=== PATIENT | female | born 1940 | race Caucasian/White ===

== ENCOUNTER 2016-05-30 13:24 | Inpatient (IN) | payer OTHER, MEDICARE ==
[~2016-05-30] VITALS: Ht 157.5 cm; Wt 76.7 kg
[2016-05-30 13:28] VITALS: BP 125/71; PULSE 94; RESP 18; TEMP 97.7; O2SAT 95
--- NOTE | 2016-05-30 13:55 | NUR ---
No ER beds available at this time. Pt placed to ER waiting room in stable condition.
--- NOTE | 2016-05-30 14:45 | NUR ---
Ulysses maradiaga in EDM - 05/30/16 at [address] Ni at bedside to assess pt.
--- NOTE | 2016-05-30 14:47 | NUR ---
Patient to ER bed 8 to gown for evaluation. Side rails up. Report given to Vicky SHAHID.
[2016-05-30] MEDS ORDERED: KETOROLAC TROMETHAMINE 30 MG VIAL IVP ONE (15:00)
--- NOTE | 2016-05-30 15:10 | NUR ---
Patient to ER C/O severe left knee pain. Patient states that couple days ago she had sudden onset of bilateral knee pain post fall "to my knees" on asphalt, left knee is worse. Had imaging done CT & MRI. AAOx4, unlabored breathing, no deformity, no signs of acute distress.
--- NOTE | 2016-05-30 15:15 | NUR ---
# 18 gauge angiocath placed to right forearm. Use of asceptic technique. Opsite placed over site. Blood return noted. Blood for lab drawn from site. Flushed with 10 cc of normal saline. No evidence of infiltration noted. Patient tolerated well.
[2016-05-30 15:34] LABS: BASOPHILS # (AUTO) 0.1 K/uL (0.0-0.2); BASOPHILS % (AUTO) 0.5 % (0.0-2.0); EOSINOPHILS # (AUTO) 0.4 K/uL (0.0-0.4); EOSINOPHILS % (AUTO) 2.8 % (0.0-4.0); HEMATOCRIT 42.1 % (36-48); HEMOGLOBIN 14.1 g/dL (12.0-16.0); LYMPHOCYTES # (AUTO) 1.9 K/uL (1.0-5.5); LYMPHOCYTES % (AUTO) 14.2 % (20.5-51.5); MEAN CORPUSCULAR HEMOGLOBIN 29 pg (27-31); MEAN CORPUSCULAR HGB CONC 34 % (32-36); MEAN CORPUSCULAR VOLUME 87 fL (79.0-98.0); MONOCYTES # (AUTO) 1.1 K/uL (0.0-1.0); MONOCYTES % (AUTO) 8.3 % (1.7-9.3); NEUTROPHILS # (AUTO) 9.5 K/uL (1.8-7.7); NEUTROPHILS % (AUTO) 74.2 % (40.0-70.0); PLATELET COUNT (AUTO) 234 K/uL (130-430); RED BLOOD CELL COUNT(AUTO) 4.83 MIL/uL (4.2-6.2); RED CELL DISTRIBUTION WIDTH 13.4 % (9.0-15.0)
--- NOTE | 2016-05-30 15:34 | NUR ---
Medication reconciliation - Patient does not remember the complete med list with MGs. Patient advised to ask family to bring pill bottles for med rec.
[2016-05-30 15:39] LABS: ANION GAP 9 (5-15); CALCIUM 9.5 mg/dL (8.4-11.0); CHLORIDE 99 mmol/L (98-107); CREATININE 1.01 mg/dL (0.55-1.30); GLUCOSE 179 mg/dL (70-99); POTASSIUM 4.3 mmol/L (3.5-5.1); SODIUM SERUM 133 mmol/L (136-145); UREA NITROGEN, BLOOD 18 mg/dL (8-21)
[2016-05-30 15:44] LABS: ALANINE AMINOTRANSFERASE 20 U/L (12-78); ASPARTATE AMINOTRANSFERASE 15 U/L (10-37); TOTAL BILIRUBIN 0.5 mg/dL (0.0-1.0); TOTAL PROTEIN, SERUM 7.8 g/dL (6.4-8.3)
[2016-05-30] MEDS ORDERED: MORPHINE 2 MG/ML INJ. SYRINGE IVP PRN (15:45)
[2016-05-30] MEDS ORDERED: cefTRIAXone 1 GM IVPB PREMIX 50 ML IV ONE (15:45)
[2016-05-30] MEDS ORDERED: ACETAMINOPHEN 325 MG TABLET PO PRN (15:45)
[2016-05-30 15:50] LABS: INR 0.9 (0.8-1.2); PROTHROMBIN TIME 10.3 SECS (9.5-12.5)
--- NOTE | 2016-05-30 15:59 | NUR ---
Trial Attorney at bedside for lactic acid & blood cultures draw, patient identified.
--- NOTE | 2016-05-30 16:02 | NUR ---
Patient will be admitted to care of DR GOMES. Admitted to [facility] IN unit. Will go to room 107A. Belongings list completed. Summary report printed. Report given to RN.
[2016-05-30] MEDS ORDERED: GLUXR500 PO (16:10)
[2016-05-30] MEDS ORDERED: GLIP5TAB13 PO (16:10)
--- NOTE | 2016-05-30 16:13 | NUR ---
Transfer to [facility]. IV present no sign or symptom of infiltration.
--- NOTE | 2016-05-30 16:19 | NUR ---
ADMISSION NOTE Received patient from ER via gurney. Patient admitted with diagnosis of FALL, KNEE PAIN. Patient is awake, alert, oriented X 4. Patient oriented to hospital room, call light, toileting, pain management and safety-teach back done. Patient informed that SALVADOR will be THE nurse and that their room number is 107A. Personal belongings checked and Belongings List documented. Call light within reach.
[2016-05-30 16:26] VITALS: BP 121/69; PULSE 103; RESP 16; TEMP 97.6
[2016-05-30] MEDS ORDERED: metFORMIN HCL 500 MG TABLET PO SCH (18:00)
[2016-05-30] MEDS ORDERED: OMEP40CA33 PO (18:13)
[2016-05-30] MEDS ORDERED: VITA1CAP PO (18:13)
[2016-05-30] MEDS ORDERED: CHOL400D6 PO (18:13)
[2016-05-30] MEDS ORDERED: SPIR50TA26 PO (18:13)
[2016-05-30] MEDS ORDERED: VITA100T3 PO (18:13)
[2016-05-30] MEDS ORDERED: GLIM4TAB PO (18:13)
[2016-05-30] MEDS ORDERED: METF-509 PO ×2 (18:13)
[2016-05-30] MEDS ORDERED: ASCO125T PO (18:13)
--- NOTE | 2016-05-30 18:20 | NUR ---
CLOSING NOTE: All needs met. No change in assessment. Will endorse to NOC shift nurse.
--- NOTE | 2016-05-30 20:02 | NUR ---
Opening Note Report received from Juan SHAHID. Patient is in stable condition. Currently resting in bed. No complaints at the present moment. IV is on the RFA, saline locked. Call light is within reach. Instructed patient to use it whenever in need of assistance.
[2016-05-30 20:03] VITALS: BP 112/63; PULSE 80; RESP 16; TEMP 96.2; O2SAT 96
--- NOTE | 2016-05-30 22:08 | NUR ---
Rounds Assisted patient to the bed benavides. Call light is within reach.
[2016-05-31] VITALS: BP 122/66; PULSE 73; RESP 16; TEMP 97.2; O2SAT 96
--- NOTE | 2016-05-31 00:28 | NUR ---
Rounds Assisted patient to the bed benavides. Call light is within reach.
[2016-05-31 02:38] LABS: BILIRUBIN,URINE NEGATIVE (NEGATIVE); CLARITY/URINE CLEAR (CLEAR); COLOR,URINE YELLOW (YELLOW); GLUCOSE,URINE NEGATIVE (NEGATIVE); KETONES,URINE NEGATIVE (NEGATIVE); LEUKOCYTE ESTERASE ,URINE TRACE (NEGATIVE); NITRITE, URINE NEGATIVE (NEGATIVE); PROTEIN URINE NEGATIVE (NEGATIVE); UROBILINOGEN,URINE 0.2 (0.2-1.0)
--- NOTE | 2016-05-31 02:40 | NUR ---
Rounds Patient is currently resting in bed. Call light is within reach.
[2016-05-31 02:49] LABS: BLOOD, URINE TRACE (NEGATIVE)
[2016-05-31 03:05] LABS: BACTERIA,URINE FEW /HPF (None Seen); RBC,URINE 0-3 /HPF (0-3)
[2016-05-31 03:08] LABS: MUCUS,URINE None Seen /LPF (None Seen)
[2016-05-31 04:00] VITALS: BP 123/76; PULSE 81; RESP 16; TEMP 96.9; O2SAT 96
--- NOTE | 2016-05-31 04:48 | NUR ---
Rounds Patient is resting in bed. Call light is within reach.
[2016-05-31] MEDS: GLIMEPIRIDE 2 MG TABLET PO SCH (06:15)
--- NOTE | 2016-05-31 06:48 | NUR ---
Closing Note Patient is currently resting in bed. No complaints at the moment. Bed is in low position. Call light is within reach. Instructed to use it whenever in need of assistance. IV is on the RFA 22g, saline locked. Will give report to the oncoming nurse.
[2016-05-31 07:34] LABS: ANION GAP 6 (5-15); BASOPHILS % (AUTO) 0.2 % (0.0-2.0); CALCIUM 8.9 mg/dL (8.4-11.0); CHLORIDE 103 mmol/L (98-107); EOSINOPHILS # (AUTO) 0.3 K/uL (0.0-0.4); EOSINOPHILS % (AUTO) 3.8 % (0.0-4.0); GLUCOSE 159 mg/dL (70-99); HEMATOCRIT 37.2 % (36-48); HEMOGLOBIN 12.8 g/dL (12.0-16.0); LYMPHOCYTES # (AUTO) 1.4 K/uL (1.0-5.5); LYMPHOCYTES % (AUTO) 16.6 % (20.5-51.5); MEAN CORPUSCULAR HEMOGLOBIN 30 pg (27-31); MEAN CORPUSCULAR HGB CONC 34 % (32-36); MEAN CORPUSCULAR VOLUME 88 fL (79.0-98.0); MONOCYTES # (AUTO) 0.6 K/uL (0.0-1.0); MONOCYTES % (AUTO) 6.6 % (1.7-9.3); NEUTROPHILS # (AUTO) 6.3 K/uL (1.8-7.7); NEUTROPHILS % (AUTO) 72.8 % (40.0-70.0); PLATELET COUNT (AUTO) 205 K/uL (130-430); RED BLOOD CELL COUNT(AUTO) 4.22 MIL/uL (4.2-6.2); RED CELL DISTRIBUTION WIDTH 13.6 % (9.0-15.0); SODIUM SERUM 137 mmol/L (136-145); UREA NITROGEN, BLOOD 13 mg/dL (8-21); WHITE BLOOD COUNT (AUTO) 8.6 K/uL (4.8-10.8)
--- NOTE | 2016-05-31 08:00 | NUR ---
AM Initial Notes Pt aaox4 with complaints of mild pain to right leg. No distress noted. Pt eating breakfast and chocked on a piece of her toast. Pt coughing but able to cough up piece of toast. Feels much better. Weakness noted to bilateral lower extremities. Fall and safety precautions enforced with bed alarm armed. Encouraged to call for assistance. Call light within reach. Will monitor.
[2016-05-31 08:30] VITALS: BP 122/65; PULSE 85; RESP 18; TEMP 97.8; O2SAT 96
[2016-05-31] MEDS ORDERED: ASCORBIC ACID 500 MG TABLET PO SCH (09:00)
--- NOTE | 2016-05-31 09:00 | NUR ---
Physical Therapy Pt ambulating with therapist inside room. Pt weak and complaints of right leg pain. Pt sitting up in chair.
[2016-05-31] MEDS: OMEPRAZOLE 20 MG CAPSULE.DR (PriLOSEC) PO SCH (09:22)
[2016-05-31] MEDS: SPIRONOLACTONE 50 MG TABLET (ALDACTONE) PO SCH (09:23)
[2016-05-31] MEDS: CHOLECALCIFEROL (VITAMIN D-3) 400 UNIT TABLET PO SCH (09:23)
[2016-05-31] MEDS: metFORMIN HCL 500 MG TABLET PO SCH ×2 (09:23→17:54)
[2016-05-31] MEDS: VITAMIN B COMPLEX 1 CAP/TAB PO SCH (09:30)
--- NOTE | 2016-05-31 09:31 | NUR ---
Tylenol Medicated patient with Tylenol 650mg for right leg pain 08/23. Will monitor.
--- NOTE | 2016-05-31 09:39 | NUR ---
Nutrition Update Jeffrey Scale 14 noted. Pt admitted for L knee trauma. Diet: [facility] BMI: 31.1 kg/m2 RD to follow per nutrition care standards.
--- NOTE | 2016-05-31 11:00 | NUR ---
Rounds Pt awake resting in bed with daughter at bedside. No complaints of knee pain at this time. Kept comfortable. Encouraged to call for assistance.
[2016-05-31 12:00] VITALS: BP 126/61; PULSE 78; RESP 18; TEMP 97; O2SAT 97
--- NOTE | 2016-05-31 12:48 | NUR ---
ORTHO CONSULT Spoke with Misa regarding request for consultation with Dr. Monroe ([phone]) for reason: right knee effusion
[2016-05-31] MEDS ORDERED: methylPREDNISolone ACETATE 80 MG/ML IM ONE (13:00)
[2016-05-31] MEDS ORDERED: BUPIVACAINE /PF 0.25% 30 ML VIAL INJ ONE (13:00)
--- NOTE | 2016-05-31 13:20 | NUR ---
Dr. Mabel Monroe inside room assessing patient and plan of care discussed. Aspirated 50cc of blood from right knee and injected steroid after. Pt did not complain of any discomfort.
--- NOTE | 2016-05-31 13:32 | NUR ---
Rounds Pt resting in bed. No complaints of pain or discomfort at this time. Kept pt comfortable. Encouraged to call for assistance. Will monitor.
[2016-05-31 15:07] VITALS: Ht 157.5 cm; Wt 76.7 kg
--- NOTE | 2016-05-31 16:00 | NUR ---
Rounds Pt asleep. No significant changes noted. Will monitor.
[2016-05-31 16:56] VITALS: BP 117/63; PULSE 82; RESP 17; TEMP 97.5; O2SAT 95
--- NOTE | 2016-05-31 18:30 | NUR ---
Closing notes Pt awake resting in bed with no complaints of pain or discomfort. Right knee appears slightly swollen and bruised from the aspiration and steroid injection of Dr. Monroe. Kept comfortable. Encouraged to call for assistance. Will endorse care to incoming nurse.
[2016-05-31 19:30] VITALS: BP 123/84; PULSE 96; RESP 18; TEMP 97.7; O2SAT 96
--- NOTE | 2016-05-31 19:30 | NUR ---
Initial Notes Pt is A/Ox4, pleasant and cooperative. POC discussed with pt, pt verbalized understanding. Pt educated sanitation supervisor light and direct ext how to reach nurse given. VSS. IV intact. Bilateral swelling, varicose veins, and bruising noted to lower extremities. Pt had a I&D of right knee, with no drainage or s/s of infection noted. Pt involved with setting goals for her night, and pt stated she would like to increase her physical activity but would like to try in the morning, also to get some rest. Pt educate on pain management, and encouraged to call nurse directly if needed. Safety precautions in place, side rails up x3, with bed in lowest, locked position, bed alarm on. Bilateral lower extremities elevated on pillows for comfort. All needs met at this time. Call light in hand. Will continue to monitor.
[2016-05-31] MEDS: HYDROcodone/ACETAMIN 5-325 MG TAB (NORCO/ VICODIN) PO PRN (20:53)
--- NOTE | 2016-05-31 20:53 | NUR ---
Pain Management Pt c/o right knee pain 05/23. Pt educated on pain medication [place] ordered, and side effects. Pt encouraged to call nurse for assistance as needed. Pt medicated with [place] as ordered for moderate pain. Call light in hand. Will continue to monitor.
--- NOTE | 2016-05-31 23:47 | NUR ---
Rounds Pt is sleeping comfortably at this time. No acute distress or sob noted. IV intact. All needs met throughout shift. Will continue to monitor.
[2016-06-01] VITALS (7 sets, daily range): BP systolic 119–135; BP diastolic 64–88; PULSE 76–89; RESP 16–18; TEMP 97.2–98.9; O2SAT 93–98
--- NOTE | 2016-06-01 02:56 | NUR ---
Rounds Pt resting at this time, easily arousable. Pt stated will be picking her up in about an hour. Discharge paperwork pending. Pt denies any pain or discomfort at this time. Call light in hand. Will continue to monitor. Addendum: 06/01/16 at 0259 by Lynne Pro LVN Note for wrong patient.
--- NOTE | 2016-06-01 02:56 | NUR ---
Rounds Pt is sleeping comfortably in bed at this time. No acute distress or sob noted. All needs met at this time. Call light in hand. Will continue to monitor.
[2016-06-01] MEDS: GLIMEPIRIDE 2 MG TABLET PO SCH (06:57)
--- NOTE | 2016-06-01 07:18 | NUR ---
Closing Notes Pt is awake, alert and oriented. Pt is in good spirits, stating she slept really well last night. Pt denies any pain or discomfort at this time. VSS. IV intact. Blood sugar spot checked, 218 - scheduled medication Amaryl 4mg po given as ordered. Pt instructed to make sure she eats her breakfast. No drainage noted to right knee. All needs met throughout. Will endorse care to am nurse. Call light in hand.
--- NOTE | 2016-06-01 08:00 | NUR ---
NOTE PT SITTING UP IN BED. PT'S DAUGHTER AT BEDSIDE AT THIS TIME. NO SOB/RESP DISTRESS OR PAIN/DISCOMFORT NOTED AT THIS TIME. IVF'S ARE SALINE LOCKED AT THIS TIME. PT HAS HER BREAKFAST TRAY ACROSS HER AT THIS TIME. BILATERAL KNEES ARE SWOLLEN AND TENDER AT THIS TIME. CALL LIGHT WITHIN REACH.
[2016-06-01] MEDS: CHOLECALCIFEROL (VITAMIN D-3) 400 UNIT TABLET PO SCH (08:12)
[2016-06-01] MEDS: metFORMIN HCL 500 MG TABLET PO SCH ×2 (08:13→17:24)
[2016-06-01] MEDS: OMEPRAZOLE 20 MG CAPSULE.DR (PriLOSEC) PO SCH (08:13)
[2016-06-01] MEDS: VITAMIN B COMPLEX 1 CAP/TAB PO SCH (08:14)
[2016-06-01] MEDS: SPIRONOLACTONE 50 MG TABLET (ALDACTONE) PO SCH (08:14)
[2016-06-01] MEDS: HYDROcodone/ACETAMIN 5-325 MG TAB (NORCO/ VICODIN) PO PRN ×2 (08:32→17:27)
--- NOTE | 2016-06-01 10:00 | NUR ---
NOTE DR LONG CAME TO FLOOR AND ASSESSED PT AT THIS TIME. VERBALLY INSTRUCTED PT TO GET OOB WITH ASSISTANCE AND WALK TO RESTROOM AND IN HALLS. PT WAS ALSO INSTRUCTED BY RN TO WIGGLE TOES AND MOVE ANKLES 10X Q' AND FLEX KNEES AND LEGS MUCH TOLERATED Q1'. PT ENC TO DEEP BREATHE AND COUGH 10X Q1' WHILE AWAKE. PT VERBALIZES UNDERSTANDING AND DENIES AY NEEDS AT THIS TIME. CALL LIGHT WITHIN REACH.
--- NOTE | 2016-06-01 12:00 | NUR ---
NOTE PT RESTING IN BED. DENIES ANY NEEDS AT THIS TIME. PT READING MAGAZINES AND WATCHING TELEVISION AT THIS TIME. CALL LIGHT WITHIN REACH.
--- NOTE | 2016-06-01 15:00 | NUR ---
NOTE PT SITTING UP IN BED. PT'S AT BEDSIDE WITH FWW VISITING AT THIS TIME. PT HAS USED BSC 2X WITH MINIMAL ASSIST. PT DENIES ANY NEEDS AT THIS TIME. PT ENC TO TAKE DEEP BREATHS 10X Q1' AND TO MOVE EXTREMITIES WHILE LYING IN BED. CALL LIGHT WITHIN REACH.
--- NOTE | 2016-06-01 18:20 | NUR ---
NOTE PT SITTING UP IN BED AND EATING HER DINNER. NO SOB/RESP DISTRESS OR PAIN/DISCOMFORT NOTED AT THIS TIME. IV IN RIGHT FOREARM INTACT AND PATENT AT THIS TIME. PT WAS MAINTAINED WITH SAFETY PRECAUTIONS ALL SHIFT. PT WAS CHECKED ON Q1' AND PRN FOR NEEDS AND CARE. CALL LIGHT WITHIN REACH.
--- NOTE | 2016-06-01 19:18 | NUR ---
Initial Assessment: Awake, alert and oriented x3. Respirations unlabored, regular and clear bilat. to auscultation. Denies discomfort at this time. Voided on BSC moderate amt. of clear yellow urine. Has ice packs to bilateral knees where swollen. Both lower extremities elevated with pillows. Call light within reach with bed in low position.
--- NOTE | 2016-06-01 21:18 | NUR ---
ROUNDS PT IS RESTING @ THIS TIME. NO C/O PAIN AND NO SOB NOTED. BED IN LOW POSITION, WILL CONT OT MONITOR.
--- NOTE | 2016-06-01 23:18 | NUR ---
ASSISTED TO COMMODE ASSISTED TO COMMODE AND SAFELY BACKED TO BED. NO S/S OF PAIN AND NO DISTRESS NOTED. BED IN LOW POSITION WITH CALL LIGHT WITHIN REACH;WILL CONT TO MONITOR.
--- NOTE | 2016-06-02 01:18 | NUR ---
ROUNDS PT IS RESTING COMFORTABLY @ THIS TIME. NO S/S OF PAIN AND NO DISTRESS NOTED. BED IN LOW POSITION WITH CALL LIGHT WITHIN REACH, WILL CONT TO MONITOR.
--- NOTE | 2016-06-02 03:18 | NUR ---
REPOSITIONED IN BED ASSISTED TO TURN PT IN BED. NO S/S OF PAIN AND NO DISTRESS NOTED. BED IN LOW POSITION WITH CALL LIGHT WITHIN REACH, WILL CONT TO MONITOR.
[2016-06-02 03:47] VITALS: BP 131/75; PULSE 66; RESP 18; TEMP 96.8; O2SAT 95
--- NOTE | 2016-06-02 05:18 | NUR ---
AM CARE ASSISTED WITH AM CARE. EMPTY BEDSIDE COMMODE. BED IN LOW POSITION WITH CALL LIGHT WITHIN REACH, WILL CONT TO MONITOR.
[2016-06-02] MEDS: GLIMEPIRIDE 2 MG TABLET PO SCH (06:15)
[2016-06-02 07:34] VITALS: BP 121/71; PULSE 79; RESP 18; TEMP 97; O2SAT 96
--- NOTE | 2016-06-02 07:38 | NUR ---
FINAL NOTES PT IS RESTING @ THIS TIME. NO C/O PAIN AND NO SOB NOTED. V/S ARE WNL. ALL NEEDS MET AND ANTICIPATED BY NOC NURSES. BED IN LOW POSITION WITH CALL LIGHT WITHIN REACH, ENDORSED
--- NOTE | 2016-06-02 07:44 | NUR ---
INITIAL NOTES RECEIVED PATIENT ON BED ASLEEP.BREATHING EVEN AND UNLABORED.NO ACUTE DISTRESS.IV SALINE LOCK INTACT AND PATENT;NO SIGNS AND SYMPTOMS OF INFILTRATION.SAFETY AND FALL PRECAUTIONS IN PLACE.CALL LIGHT WITHIN REACH
[2016-06-02] MEDS: CHOLECALCIFEROL (VITAMIN D-3) 400 UNIT TABLET PO SCH (08:35)
[2016-06-02] MEDS: SPIRONOLACTONE 50 MG TABLET (ALDACTONE) PO SCH (08:36)
[2016-06-02] MEDS: OMEPRAZOLE 20 MG CAPSULE.DR (PriLOSEC) PO SCH (08:36)
[2016-06-02] MEDS: metFORMIN HCL 500 MG TABLET PO SCH (08:36)
[2016-06-02] MEDS: VITAMIN B COMPLEX 1 CAP/TAB PO SCH (08:37)
[2016-06-02] MEDS ORDERED: ACET325T53 PO (09:32)
[2016-06-02] MEDS ORDERED: HYDR-1189 PO (09:32)
--- NOTE | 2016-06-02 10:00 | NUR ---
NOTES ENVIRONMENTAL SERVICE AIDE REPORTED TO NURSE THAT THE PATIENT HAD BRIGHT RED BLOOD IN STOOL WHEN THE PATIENT HAD BOWEL MOVEMENT THIS MORNING.CHECKED AND ASSESSED RECTUM;NO ACTIVE BLEEDING NOTED;NO OPEN AREA;NO COMPLAIN OF PAIN OR DISCOMFORT
--- NOTE | 2016-06-02 10:14 | NUR ---
DISCHARGE PLANNING DC order to [facility]. Faxed SNF referral [phone]. Will follow up. Addendum: 06/02/16 at 1046 by Brittney Denise DP Met with patient at bedside regarding SNF placement. Patient was given SNF choices and wanted to be placed at [facility]. Patient stated her daughter lives down the street from facility and she has family that reside at [facility]. Patient will notify and keep her daughter updated on discharge. Patient had no further questions or concerns pertaining to discharge plan. Addendum: 06/02/16 at 1201 by Brittney Denise DP Spoke with [facility] in admitting at [facility] patient accepted assigned to room 135B RN to report [phone], bed available anytime. ZEHRA Mackay made aware. Called [facility] [phone] spoke with Jaymie arranged BLS transport case picker 2:30pm. Placed transportation packet in nurses station.
--- NOTE | 2016-06-02 10:30 | NUR ---
NOTES INFORMED REGARDING PATIENT'S EPISODE OF BRIGHT RED BLOOD IN THE STOOL SAID ITS PROBABLY HEMORRHOIDS;NO NEW ORDER
[2016-06-02 11:28] VITALS: BP 114/62; PULSE 76; RESP 19; TEMP 97.7; O2SAT 96
--- NOTE | 2016-06-02 12:30 | NUR ---
NOTES SERVED LUNCH;TOLERATED FOOD WELL
--- NOTE | 2016-06-02 13:02 | NUR ---
NOTES CALLED [facility];REPORT GIVEN TO GAGAN(NURSE)
--- NOTE | 2016-06-02 14:00 | NUR ---
NOTES ASSISTED PATIENT TO THE COMMODE WITH A WALKER;TOLERATED ACTIVITY WELL;ABLE TO USE WALKER SAFELY
[2016-06-02 14:54] VITALS: BP 114/62; PULSE 76; RESP 18; TEMP 97.7; O2SAT 96
--- NOTE | 2016-06-02 15:16 | NUR ---
PT TRANSFERRED Report given to GAGAN abarca . Transfer packet with Transfer Orders and Medication Reconciliation form given to EMT with report. Exitcare provided. [facility] ID band removed, replaced with ID band with pt's name and . IV catheter removed, intact and dressing applied, no active bleeding. All belongings sent with patient. Patient left floor via gurney escorted by EMT in no distress.
--- NOTE | 2016-06-02 15:25 | NUR ---
PHYSICAL THERAPY CO-SIGN The Physical Therapy Progress Notes documented by Turner Splitter Machine Operator have been reviewed. I CONCUR W/SHINGLE SHEARING MACHINE OPERATOR NOTE; CONT PT PER TX PLAN Reviewed/Co-Signed by: Teagan Ortega PT Documentation Done by: KATRINA RAPHAEL SHINGLE SHEARING MACHINE OPERATOR Addendum: 06/02/16 at 1526 by Teagan Ortega PT Amended: Links added.
== END 2016-06-02 15:00 | DRG 563 ==
LOC: SED 13:24 → SMU 15:58
PROVIDERS: ADMIT Internal Medicine Cardiovascular Disease; ATTEND Internal Medicine Cardiovascular Disease
PROC: 0S9C3ZZ Drainage of Right Knee Joint, Percutaneous Approach (ICD-10-PCS; principal; 2016-05-31)
PROC: 3E0U33Z Introduction of Anti-inflammatory into Joints, Percutaneous Approach (ICD-10-PCS; 2016-05-31)
DX: S83.421A Sprain of lateral collateral ligament of right knee, initial encounter (principal); M25.061 Hemarthrosis, right knee; E66.9 Obesity, unspecified; I83.90 Asymptomatic varicose veins of unspecified lower extremity; E11.9 Type 2 diabetes mellitus without complications; M17.11 Unilateral primary osteoarthritis, right knee; W01.0XXA Fall on same level from slipping, tripping and stumbling without subsequent striking against object, initial encounter; M25.461 Effusion, right knee; Z90.710 Acquired absence of both cervix and uterus; Y93.89 Activity, other specified; Y92.89 Other specified places as the place of occurrence of the external cause; Y99.8 Other external cause status; Z88.8 Allergy status to other drugs, medicaments and biological substances; Z79.899 Other long term (current) drug therapy; R26.2 Difficulty in walking, not elsewhere classified
CPT/HCPCS: 36415; 71010; 80048; 80053; 81000-TC; 82962; 83036; 83605; 85025; 85610-TC; 85730-TC; 87040-TC; 93005; 96365; 96375; 97116-GP; 97530-GP; 99285; J0696; J1040; J1885; J3490